=== PATIENT | male | born 2000 | race Caucasian/White ===

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

== ENCOUNTER 2020-02-28 10:48 | Emergency (ER) | payer SELFPAY ==
[~2020-02-28] VITALS: Ht 175.3 cm; Wt 75.0 kg
[2020-02-28] MEDS ORDERED: CEPHALEXIN500 M1 PO (12:55)
[2020-02-28 13:05] VITALS: BP 129/83
== END 2020-02-28 13:05 | disposition home or self-care (01) | DRG 605 ==
LOC: ED 10:48
PROC: 0HQNXZZ Repair Left Foot Skin, External Approach (ICD-10-PCS; principal; 2020-02-28)
DX: S91.312A Laceration without foreign body, left foot, initial encounter (principal); W20.8XXA Other cause of strike by thrown, projected or falling object, initial encounter; Y92.009 Unspecified place in unspecified non-institutional (private) residence as the place of occurrence of the external cause

== ENCOUNTER 2021-03-19 09:58 | Emergency (ER) | payer SELFPAY ==
[~2021-03-19] VITALS: Ht 175.3 cm; Wt 84.0 kg
[~2021-03-19 09:58] MED LIST changes: +CEPHALEXIN500 M1 PO
[2021-03-19 10:51] LABS: URINE BILIRUBIN - DIPSTICK NEGATIVE (NEGATIVE); URINE BLOOD DIPSTICK NEGATIVE (NEGATIVE); URINE COLOR YELLOW; URINE GLUCOSE - DIPSTICK NEGATIVE (NEGATIVE); URINE KETONE 15 mg/dL (NEGATIVE); URINE LEUK ESTERASE NEGATIVE (NEGATIVE); URINE PROTEIN - DIPSTICK NEGATIVE (NEG-TRACE); URINE UROBILINOGEN - DIPSTICK 0.2 E.U./dL (0.2)
[2021-03-19 10:53] LABS: IMMATURE GRANULOCYTES 0.4 % (0.0-5.0); MEAN CELL VOLUME 90.2 fL CALC (80.0-100.0); MEAN CORPUSCULAR HGB CONC 34.4 g/dL CAL (32.0-36.0); NEUT# 6.71 thou/uL (1.82-7.42); RED BLOOD COUNT 5.71 mill/uL (4.70-6.10); RED CELL DISTRI WIDTH 11.7 % (11.5-15.5)
[2021-03-19 10:56] LABS: URINE NITRITE - DIPSTICK NEGATIVE (Negative)
[2021-03-19 10:56] LABS: HEMATOCRIT 51.5 % (39.0-50.0); HEMOGLOBIN 17.7 g/dl (14.0-18.0)
[2021-03-19 11:02] LABS: ALKALINE PHOSPHATASE 76 u/l (38-126); ANION GAP 16 (6-22 (CALC)); BILIRUBIN, TOTAL 0.9 mg/dL (0.0-1.4); BUN 17 mg/dL (9-20); BUN/CREATININE RATIO 21 (12-20 (CALC)); CARBON DIOXIDE 21 mmol/l (22-30); CHLORIDE 107 mmol/l (95-108); CREATININE 0.8 mg/dL (0.7-1.3); GFR > 60 ML/MIN (>=60 (CALC)); GFR FOR AFR.AMER. > 60 ML/MIN (>=60 (CALC)); LIPASE 117 u/l (23-300); POTASSIUM 4.7 mmol/l (3.5-5.1); SGOT/AST 27 u/l (17-59); SODIUM 139 mmol/l (137-146); TOTAL PROTEIN 8.4 g/dL (6.3-8.2)
[2021-03-19] MEDS ORDERED: PROTONIX40 M2 PO (13:06)
[2021-03-19] MEDS ORDERED: ULTRAM50 MG PO (13:06)
[2021-03-19 13:10] VITALS: BP 128/77
== END 2021-03-19 13:15 | disposition home or self-care (01) | DRG 392 ==
LOC: ED 09:58
DX: R10.12 Left upper quadrant pain (principal)
CPT/HCPCS: Q9967; S0164